=== PATIENT | male | born 1980 | race Caucasian/White ===

== ENCOUNTER 2019-12-28 09:35 | Inpatient (IN) | payer MEDICAID ==
[~2019-12-28] VITALS: Ht 205.7 cm; Wt 111.1 kg
--- NOTE | 2019-12-28 09:48 | NUR ---
DR KASPER AT THE BEDSIDE FOR MSE.
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
--- NOTE | 2019-12-28 10:16 | NUR ---
MEDICATED PT PER MD ORDER, SEE EMAR, PT VERBALIZED UNDERSTANDING OF MEDICATION TEACHING. WILL CONT TO MONITOR.
--- NOTE | 2019-12-28 10:40 | NUR ---
PT TAKEN TO XRAY VIA EST[facility]LE.
--- NOTE | 2019-12-28 11:24 | NUR ---
DR ABDUL AT BEDSIDE FOR WOUND CARE
--- NOTE | 2019-12-28 11:25 | NUR ---
PT REPORTED PAIN LEVELS "SAME" FOLLOWING MORPHINE, PAIN 10/10. DR KASPER AT BEDSIDE.
--- NOTE | 2019-12-28 12:52 | NUR ---
PT RPEORTED IMPROVED PAIN, STATED PAIN OS 0/10 "HWEN I DON'T MOVE." PT IN POSITION OF COMFORT LAYING IN ER [facility]. PT IS AAOX4, NO DISTRESS NOTED, RESP E/U. PT NOTED TALKING ON CELL PNONE. AWARE. WILL CONT TO MONITOR.
[2019-12-28] MEDS ORDERED: PROAIR RES117 MCG/Ac INH (12:56)
--- NOTE | 2019-12-28 12:56 | NUR ---
MED REC AND BELONGINGS LIST COMPLETED
--- NOTE | 2019-12-28 14:31 | NUR ---
REPORT GIVEN TO LUIS RICK ON [facility] WHO WILL BE ASSUMING FURTHER CARE OF THIS PT.
--- NOTE | 2019-12-28 14:32 | NUR ---
RESIDENTS AT THE BEDSIDE DISCUSSING PLAN OF A CARE TO PT.
--- NOTE | 2019-12-28 15:50 | NUR ---
RECEIVED PT FROM ED NURSE VIA CARL. PT IS A/OX4. ABLE TO MAKE NEEDS KNOWN. NOSE, EYES, AND LIPS ARE SWOLLEN. LUNG SOUNDS CTA. BREATHING E/U ON RA. DENIES SOB. MED SURG PT. DENIES CP/PRESSURE. PULSES EVEN AND PALPABLE. NO EDEMA NOTED. ACTIVE BS X4. ABD SOFT AND ROUND. DENIES N/V/D. VOIDS FREELY. URINAL BY BEDSIDE. BEDREST AT THIS TIME. 6 CM LACERATION WITH 19 JOCELYN NOTED TO R KNEE. SANDOR. LACERATION NOTED TO L KNEE. ABOUT 2 CM IN LENGTH. 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 WOUND PICTURES TAKEN AND FILED IN PT'S CHART. PT C/O 02/10 TO FACE, R HIP AND LEG. WILL MEDICATE PER EMAR. IV 18 NOTED TO LH. SL. FLUSHES WITH NO DIFFICULTY. BED AT LOWEST POSITION. CALL BUTTON WITHIN REACH. WILL CONTINUE TO MONITOR.
[2019-12-28 15:51] VITALS: BP 139/81
--- NOTE | 2019-12-28 16:16 | NUR ---
RECEIVED PATIENT FROM ER VIA GUER[facility]Z, TOOK 4 STAFFS TRANSFER TO BED. AA/O X4, C/O PAIN TO RT HIP 02/10 WITH MOVEMENT. NO ACUTE DISTRESS NOTED. REPOSITION UP IN BED. ORIENTED TO CALL LIGHT. MED-SURG. IV TO INTACTA AND PATENT NOTED. ENDORSE CARE TO LUIS TO MEDICATE FOR PAIN.
[2019-12-28 16:31] LABS: BASOPHIL % 0.4 % (0-2); PLATELET COUNT 216 x10^3mcL (130-400); RED CELL DISTRIBUTION WIDTH 13.8 % (11.5-14.5)
[2019-12-28 16:56] LABS: CALCIUM 8.6 mg/dL (8.5-10.1); CARBON DIOXIDE 18.2 mmol/L (21-32); CHLORIDE SERUM 101 mmol/L (98-107); CREATININE SERUM 1.1 mg/dL (0.7-1.3); GFR1 > 60 mL/min; GLUCOSE SERUM 84 mg/dL (74-106); POTASSIUM SERUM 4.1 mmol/L (3.5-5.1); SODIUM SERUM 137 mmol/L (136-145)
[2019-12-28 17:00] LABS: ALBUMIN 3.6 g/dL (3.4-5.0); ALKALINE PHOSPHATASE 27 U/L (46-116); ALT/SGPT 161 U/L (16-63); AST/SGOT 61 U/L (15-37); BILIRUBIN TOTAL 0.5 mg/dL (0.20-1.00)
[2019-12-28 18:07] LABS: MAGNESIUM 1.7 mg/dL (1.8-2.4); PHOSPHOROUS 3.3 mg/dL (2.5-4.9)
[2019-12-28 18:08] LABS: ALBUMIN 3.6 g/dL (3.4-5.0); ALKALINE PHOSPHATASE 29 U/L (46-116); ALT/SGPT 171 U/L (16-63); AST/SGOT 61 U/L (15-37); BILIRUBIN DIRECT 0.12 mg/dL (0.0-0.2); BILIRUBIN TOTAL 0.5 mg/dL (0.20-1.00)
[2019-12-28 18:11] LABS: CHOLESTEROL/HDL RATIO 12.8
--- NOTE | 2019-12-28 18:51 | NUR ---
NO ACUTE DISTRESS NOTED. RESP EVEN AND UNLABORED. WILL ENDORSE CARE TO PM NURSE FOR CONTINUITY OF CARE.
--- NOTE | 2019-12-28 19:25 | NUR ---
PT RECEIVED FROM AM NURSE. PT A/O X4, ABLE TO MAKE NEEDS KNOWN. MED-SURG, DENIES ANY CP/PRESSURE. PULSES PALPABLE, SWELLING NOTED TO ELMER EYELIDS AND LIPS. BREATHING IS EVEN AND UNLABORED ON RA, NO RESP DISTRESS NOTED. ABD SOFT AND ROUND, DENIES ANY N/V. VOIDS FREELY, URINAL AT BEDSIDE. GENERALIZED WEAKNESS, WEAKNESS TO RLE. LARGE LACERATION TO RLE W/ 19 JOCELYN INTACT, SANDOR. PT NOTED W/ MULTIPLE ABRASIONS AND ERYTHEMA TO BODY AND FACE. PT DENIES ANY PAIN AT THIS TIME. SL TO LH, SITE WNL. NO ACUTE DISTRESS NOTED. BED IN LOWEST SETTING. SIDE RAILS UP X2, CALL LIGHT WITHIN REACH, WILL CONT TO MONITOR.
[2019-12-28 21:00] VITALS: BP 136/79
--- NOTE | 2019-12-28 21:17 | NUR ---
PT C/O 01/11 RLE PAIN, PRN MORPHINE IVP GIVEN PER EMAR. NO ACUTE DISTRESS NOTED. WILL CONT TO MONITOR.
--- NOTE | 2019-12-28 23:15 | NUR ---
PT C/O 610 RLE PAIN, PRN NORCO GIVEN PER EMAR. NO ACUTE DISTRESS NOTED. WILL CONT TO MONITOR.
--- NOTE | 2019-12-29 00:43 | NUR ---
PT AWAKE AND ALERT. PT C/O /10 RLE AND BACK PAIN, PRN MORPHINE IVP GIVEN PER EMAR. PT REPOSITIONED PER REQUEST. IVF INFUSING WELL TO , SITE WNL. NO ACUTE DISTRESS NOTED. WILL CONT TO MONITOR.
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
[2019-12-29 04:57] VITALS: BP 137/84
--- NOTE | 2019-12-29 06:21 | NUR ---
PT SLEPT AT INTERVALS THROUGHOUT THE EVENING. BREATHING IS EVEN AND UNLABORED, NO RESP DISTRESS NOTED. PT REPORTS "MY GENITAL AREA FEELS LIKE ITS SWOLLEN AND RISING UP INTO MY ABD." PT NOTED WITH MINIMAL SCROTAL EDEMA AND FIRM AND DISTENDED ABD, BOWEL SOUNDS ACTIVE X4 QUAD. PT ALSO REPORTS RLE FEELS WARM; RLE PALPATED AND SKIN WAS COOL TO TOUCH, PT ABLE TO WIGGLE TOES, FEEL SENSATION, AND RT PEDAL PULSE STRONG. NO OTHER CHANGES ENCOUNTERED DURING SHIFT. ALL NEEDS MET AND ANTICIPATED. CALL LIGHT WITHIN REACH. WILL ENDORSE CARE TO AM NURSE.
[2019-12-29 07:05] LABS: BASOPHIL % 0.3 % (0-2); PLATELET COUNT 197 x10^3mcL (130-400); RED CELL DISTRIBUTION WIDTH 13.8 % (11.5-14.5)
[2019-12-29 07:26] LABS: CALCIUM 8.4 mg/dL (8.5-10.1); CARBON DIOXIDE 26.8 mmol/L (21-32); CHLORIDE SERUM 99 mmol/L (98-107); CREATININE SERUM 1.2 mg/dL (0.7-1.3); GFR1 > 60 mL/min; GLUCOSE SERUM 93 mg/dL (74-106); MAGNESIUM 1.9 mg/dL (1.8-2.4); PHOSPHOROUS 3.2 mg/dL (2.5-4.9); POTASSIUM SERUM 4.1 mmol/L (3.5-5.1); SODIUM SERUM 134 mmol/L (136-145)
[2019-12-29 07:45] VITALS: BP 142/92
--- NOTE | 2019-12-29 09:28 | NUR ---
RECEIVED PT FROM PM NURSE. PATIENT RESTING AT THIS TIME WITH NO ACUTE DISTRESS. PT IS A/OX4. ABLE TO MAKE NEEDS KNOWN. SWELLING NOTED TO BILATERAL EYELIDS AND LIPS. LUNG SOUNDS CTA. BREATHING E/U ON RA. DENIES SOB. MED SURG. DENIES CP/PRESSURE. PULSES EVEN AND PALPABLE. MILD SCROTAL EDEMA NOTED. ACTIVE BSX4. ABD FIRM AND DISTENDED. LBM 8/26. DENIES N/V/D. VOIDS FREELY. URINAL AT BEDSIDE. GENERALIZED WEAKNESS. LACERATION NOTED TO R LEG WITH 19 JOCELYN INTACT. 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 MULTIPLE ABRASIONS AND ERYTHEMA ALSO NOTED TO BODY AND FACE. PT C/O PAIN. WILL MEDICATE PER EMAR.IV TO LH CURRENTLY INFUSING NS AT 100ML/HR. BED AT LOWEST POSITION. CALL LIGHT WITHIN REACH. WILL CONTINUE TO MONITOR.
[2019-12-29 11:55] VITALS: BP 129/88
--- NOTE | 2019-12-29 12:59 | NUR ---
Discount pharmacy card and list to low cost medical clinics given to patient.
[2019-12-29 16:03] VITALS: BP 123/62
--- NOTE | 2019-12-29 18:35 | NUR ---
PAIN MEDICATIONS GIVEN THROUGHOUT SHIFT PER EMAR. NO ACUTE DISTRESS NOTED. WILL ENDORSE CARE TO PM SHIFT FOR CONTINUITY OF CARE.
--- NOTE | 2019-12-29 19:35 | NUR ---
PT RECEIVED FROM AM NURSE. PT A/O X4, ABLE TO MAKE NEEDS KNOWN. PT DENIES CP/PRESSURE. PULSES PALPABLE, ERYTHEMA AND SWELLING NOTED TO BILAT EYELIDS, LIPS AND NOSE. MINIMAL SCROTAL SWELLING NOTED, VOIDS FREELY USING URINAL. BOWEL SOUNDS ACTIVE X4 QUAD, ABD SOFT AND DISTENDED. GENERALIZED WEAKNESS OF RLE, TOE TOUCH WEIGHT BEARING TO RLE, FWW AT BEDSIDE. 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 PT DENIES PAIN AT THIS TIME. IVF INFUSING WELL TO L HAND, SITE WNL. NO ACUTE DISTRESS NOTED, CALL LIGHT W/IN REACH, WILL CONTINUE TO MONITOR.
[2019-12-29 20:21] VITALS: BP 124/68
--- NOTE | 2019-12-29 22:34 | NUR ---
PT C/O 11/10 PAIN, PRN NORCO GIVEN PER EMAR,NO ACUTE DISTRESS, WILL CONTINUE TO MONITOR.
--- NOTE | 2019-12-30 01:41 | NUR ---
PT IS ASLEEP AND RESTING. NO ACUTE DISTRESS NOTED. NO S/S OF PAIN. EVEN RISE AND FALL OF CHEST ON RESPIRATIONS. CALL LIGHT WITHIN REACH, WILL CONTINUE TO MONITOR.
[2019-12-30 05:13] VITALS: BP 126/75
--- NOTE | 2019-12-30 06:37 | NUR ---
PT SLEPT FOR INTERVALS DURING THE NIGHT. BREATHING EVEN AND UNLABORED. NO RESP DISTRESS NOTED. PT C/O 11/10 RLE PAIN. PRN NORCO GIVEN PER EMAR. JOCELYN INTACT TO RLE, NO ACUTE CHANGES ENCOUNTERED DURING SHIFT. ALL NEEDS MET AND ANTICIPATED. IV FLUIDS INFUSING WELL TO LH. CALL LIGHT WITHIN REACH. WILL ENDORSE CARE TO AM NURSE.
--- NOTE | 2019-12-30 07:45 | NUR ---
RECEIVED PT FROM NIGHT NURSE. PT RECENTLY MEDICATED AND DID NOT NEED INTERVENTIONS FOR PAIN. WILL MONITOR AND PROVIDE MEDS AT REGULAR INTERVALS. AAOX4 AND COMFORTABLE OTHERWISE. NO ACUTE DISTRESS AT THIS TIME. ALL IMMEDIATE NEEDS MET.
[2019-12-30 10:22] LABS: BASOPHIL % 0.8 % (0-2)
[2019-12-30 10:28] LABS: PLATELET COUNT 189 x10^3mcL (130-400); RED CELL DISTRIBUTION WIDTH 13.8 % (11.5-14.5)
[2019-12-30 11:44] LABS: CALCIUM 8.8 mg/dL (8.5-10.1); CHLORIDE SERUM 100 mmol/L (98-107); CREATININE SERUM 1.2 mg/dL (0.7-1.3); GFR1 > 60 mL/min; GLUCOSE SERUM 100 mg/dL (74-106); MAGNESIUM 2.1 mg/dL (1.8-2.4); PHOSPHOROUS 3.2 mg/dL (2.5-4.9); POTASSIUM SERUM 4.3 mmol/L (3.5-5.1); SODIUM SERUM 135 mmol/L (136-145)
[2019-12-30 13:34] VITALS: BP 115/57
--- NOTE | 2019-12-30 15:35 | NUR ---
PT C/O OF ITCHING IN BILAT HANDS AND REPORTED A FEELING LIKE THERE WAS POSSIBLE SMALL PIECES OF GLASS EMBEDDED IN HIS BACK. NO GLASS WAS VISIBLE ON INSPECTION. PT DID PRESENT WITH ERYTHEMA ALL ACROSS LOWER BACK AND MIDLINE. MD ALERTED AND STATED HE WOULD COME TO ASSESS PT. BENEDRYL WAS ORDERED FOR POSSIBLE ALLERGY AND GIVEN PO. PT REPORTS BEING COMFORTABLE AT THE MOMENT. WILL CONTINUE TO MONITOR.
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
[2019-12-30 21:15] VITALS: BP 148/65
--- NOTE | 2019-12-31 01:55 | NUR ---
PATIENT RESTING WITH EYES CLOSED INTERMITTENTLY. PATIENT DENIES PAIN AT THIS TIME, REMAINS ON RA, DENIES CHEST PAIN. PT WAS GIVEN MORPHINE PRN HE REPORTED CONSTANT PAIN IN RIGHT LOWER EXTREMITY. STITCHES REMAIN IN PLACE AT THIS TIME. NO ACUTE CH ANGES AT THIS TIME. BED IN LOWEST POSITION, CALL LIGHT WITHIN REACH. WILL CONTINUE TO MONITOR.
--- NOTE | 2019-12-31 05:18 | NUR ---
PATIENT RESTED INTERMITTENTLY WITH EYES CLOSED. PT REMAINS ON RA, DENIES SOB/CHEST PAIN AT THIS TIME. PATIENT REPORTS PAIN TO RIGHT BILATERAL LOWER EXTREMITY, PAIN ALLEVIATED INTERMITTENTLY WITH PAIN MEDICATION. ALL COMFORT CARE ACCOUNTED FOR AT THIS TIME. BED IN LOWEST POSITION, CALL LIGHT WITHIN REACH. WILL CONTINUE TO MONITOR UNTIL APPROPRIATE TO ENDORSE TO DAYSHIFT NURSE.
[2019-12-31 05:29] VITALS: BP 118/71
[2019-12-31 07:01] LABS: CALCIUM 8.5 mg/dL (8.5-10.1); CARBON DIOXIDE 26.5 mmol/L (21-32); CHLORIDE SERUM 101 mmol/L (98-107); CREATININE SERUM 1.3 mg/dL (0.7-1.3); GFR1 > 60 mL/min; GLUCOSE SERUM 87 mg/dL (74-106); MAGNESIUM 2.3 mg/dL (1.8-2.4); PHOSPHOROUS 4.2 mg/dL (2.5-4.9); SODIUM SERUM 137 mmol/L (136-145)
[2019-12-31 07:02] LABS: BASOPHIL % 0.6 % (0-2); PLATELET COUNT 181 x10^3mcL (130-400); RED CELL DISTRIBUTION WIDTH 14.2 % (11.5-14.5)
--- NOTE | 2019-12-31 07:20 | NUR ---
ENDORSED CARE TO DAYSHIFT NURSE. ALL QUESTIONS/CONCERNS ADDRESSED.
--- NOTE | 2019-12-31 07:30 | NUR ---
PATIENT IS A&OX4, FOLLOWS COMMANDS AND COOPERATES WELL. MEDSURG PATIENT, DENIES CHEST PAIN. PERIPEHRAL PULSES PALPABLE W/ NO SIGNS OF EDEMA. LUNG SOUNDS CTA BILATERALLY, ON RA, O2 SAT 97%, DENIES SOB. NORMOACTIVE BSX4, ABD SOFT AND ROUND, DENIES ABD PAIN. VOIDS WELL USING URINAL. AMBULATORY WITH R SIDED GENERALIZED WEAKNESS. LACERATIONS TO FRONT OF FACE OBSERVED. STITCHES AND JOCELYN OBSERVED ON RLE. IV SITE ISC DI. WILL CONTINUE TO MONITOR PATIENT.
[2019-12-31 09:43] VITALS: BP 131/72
--- NOTE | 2019-12-31 10:50 | NUR ---
PATIENT TOLERATED WALKING TO RESTROOM USING WALKER AND BACK TO BED. PATIENT REQUESTED PAIN MEDICATION, PAIN MEDICATION PROVIDED. WILL CONTINUE TO MONITOR PATIENT.
[2019-12-31 12:44] LABS: BILIRUBIN DIRECT 0.17 mg/dL (0.0-0.2); BILIRUBIN TOTAL 0.45 mg/dL (0.20-1.00); TOTAL PROTEIN, SERUM 6.8 g/dL (6.4-8.2)
[2019-12-31 12:47] LABS: ALBUMIN 3.1 g/dL (3.4-5.0)
[2019-12-31 13:34] VITALS: BP 125/72
--- NOTE | 2019-12-31 13:51 | NUR ---
PATIENT IS CURRENTLY EATING LUNCH AT THIS TIME. PATIENT DENIES ANY DISCOMFORT AT THIS TIME, BUT ASKED FOR MORPHINE PRN TO BE GIVEN WHENEVER AVAILABLE TO HELP MANAGE PAIN. OTHERWISE, PATIENT IS COMFORTABLE AT THIS TIME. WILL CONTINUE TO MONITOR PATIENT.
[2019-12-31 17:04] VITALS: BP 134/72
--- NOTE | 2019-12-31 18:25 | NUR ---
PAIN MEDICATION HAS BEEN ADMINISTERED FOR THE PATIENT. ALL QUESTIONS AND CONCERNS HAVE BEEN ADDRESSED. WILL CONTINUE TO MONITOR PATIENT.
--- NOTE | 2019-12-31 19:30 | NUR ---
RECEIVED PT FROM [facility] NURSE. PT IS AAOX4, MED SURG PATIENT, DENIES HEADACHE/NAUSEA/DIZZINESS AT THIS TIME. PT IS MED SURG PATIENT, DENIES CHEST PAIN. PULSES ARE EQUAL BILATERALLY, NO EDEMA NOTED. PT IS ON RA, DWENIES SOB, NO ACUTE DISTRESS NOTED, EVEN AND UNLABORED BREATHING. ABDOMEN IS ROUND AND DISTENDED, NORMOACTIVE X4 QUADRANTS, LAST BM 12/28. PT VOIDS FREELY. PT HAS GENERALIZED WEAKNESS. PT HAS LACERATIONS TO FRONT OF FACE, SANDOR. PT HAS JOCELYN TO RIGHT LOWER EXTREMITY, SANDOR. PATIENT COMPLAINTS OF CONSTANT PAIN TO RIGHT LOWER EXTREMITY. PT HAS IV TO LEFT HAND, NO REDNESS OR SWELLING NOTED. PT IS CALM AND COOPERATIVE AT THIS TIME. BED IN LOWEST POSITION, CALL LIGHT WITHIN REACH. WILL CONTINUE TO MONITOR.
[2019-12-31 20:28] VITALS: BP 130/68
--- NOTE | 2020-01-01 01:26 | NUR ---
PT RESTED INTERMITTENTLY WITH EYES CLOSED. PT HAS BEEN RECEIVING PAIN MEDICATION PRN. PATIENT REPORTS CONSTANT PAIN IN RIGHT LOWER EXTREMITY, STATES MEDICATION ALLEVIATES THE PAIN, NORCO AND MORPHINE PRN HAVE BEEN GIVEN. NO OTHER ACUTE DISTRESS NOTED. BED IN LOWEST POSITION, CALL LIGHT WITHIN REACH. WILL CONTINUE TO MONITOR.
[2020-01-01 05:28] VITALS: BP 111/63
--- NOTE | 2020-01-01 06:52 | NUR ---
PATIENT RESTED INTERMITTENTLY THROUGHOUT THE NIGHT WITH EYES CLOSED. PATIENT COMPLAINTS OF INTERMITENT RIGHT LOWER LEG PAIN, GIVEN MORPHINE AND NORCO PRN. PATIENT DENIES SOB/CHEST PAIN. ALL COMFORT CARE ACCOUNTED FOR AT THIS TIME. BED IN LOWEST POSITION, CALL LIGHT WITHIN REACH. WILL CONTINUE TO MONITOR UNTIL APPROPRIATE TO ENDORSE TO DAYSHIFT NURSE.
[2020-01-01 07:01] LABS: BASOPHIL % 0.4 % (0-2); PLATELET COUNT 187 x10^3mcL (130-400); RED CELL DISTRIBUTION WIDTH 13.6 % (11.5-14.5)
[2020-01-01 07:13] LABS: ALKALINE PHOSPHATASE 27 U/L (46-116); ALT/SGPT 117 U/L (16-63); AST/SGOT 42 U/L (15-37); BILIRUBIN TOTAL 0.7 mg/dL (0.20-1.00); CALCIUM 8.7 mg/dL (8.5-10.1); CARBON DIOXIDE 27.9 mmol/L (21-32); CHLORIDE SERUM 99 mmol/L (98-107); CREATININE SERUM 1.1 mg/dL (0.7-1.3); GFR1 > 60 mL/min; GLUCOSE SERUM 95 mg/dL (74-106); MAGNESIUM 1.9 mg/dL (1.8-2.4); PHOSPHOROUS 3.8 mg/dL (2.5-4.9); POTASSIUM SERUM 3.9 mmol/L (3.5-5.1); SODIUM SERUM 136 mmol/L (136-145)
[2020-01-01 07:16] LABS: ALBUMIN 3.2 g/dL (3.4-5.0)
--- NOTE | 2020-01-01 07:37 | NUR ---
ENDORSED CARE TO DAYSHIFT NURSE. ALL QUESTIONS/CONCERNS ADDRESSED.
[2020-01-01 09:26] VITALS: BP 137/78
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
[2020-01-01 13:25] VITALS: BP 130/70
[2020-01-01] MEDS ORDERED: NORCO 10-325 T1 EACH PO (13:58)
--- NOTE | 2020-01-01 15:35 | NUR ---
UPDATE: TALKED TO DR LAIRD AND UPDATED HIM ON PAIN MANAGEMENT GOAL. PATIENT HAS ONLY TAKEN MORPHINE X1 AND NORCO X1 BUT WANTED MORE PAIN MANAGEMENT THIS AFTERNOON. NORCO FREQUENCY WAS ADJUSTED AND FREQUENCY CHANGED TO Q4H. NORCO WAS GIVEN AT 1444. PATIENT GOT GABRIEL KHOURY, PAGED MD TO CLARIFY IF IT IS OK. REGULAR DIET PATIENT.
--- NOTE | 2020-01-01 16:46 | NUR ---
UPDATE ON D/C DR NOE CALLED AND WANTED TO DC PATIENT TODAY IF HE FELT COMFORTABLE. I ASKED AND HE SAID HE WOULD PREFER TO STAY OVERNIGHT AND DC IN THE AM, HE WILL ARRANGE TRANSPORTION WITH FAMILY TO PICK HIM UP. CONTINUE NORCO FOR NOW WITHOUT MORPHINE IN PREPERATION FOR DISCHARGE.
[2020-01-01 17:58] VITALS: BP 123/66
--- NOTE | 2020-01-01 19:35 | NUR ---
RECEIVED PT FROM DAYHISFT NURSE. PT IS AAOX4, DENIES HEADACHE/NAUSEA/DIZZINESS. PT IS MED SURG PATIENT, DENIES CHEST PAIN AT THIS TIME. PT IS CTA, ON RA, DENIES SOB. NO ACUTE DISTRESS NOTED, EVEN AND UNLABORED BREATHING. ABDOMEN IS SOFT AND ROUND, NO PAIN UPON PALPATION. NORMOACTIVE X4 QUADRANTS, LAST BM 12/31. PT VOIDS FREELY, URINAL AT BEDSIDE. PT HAS GENERALIZED WEAKNESS AND WEAKNESS TO RIGHT LOWER EXTREMITY. 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 PT HAS RIGHT LOWER EXTREMITY JOCELYN, HYDRAULIC OIL TOOL OPERATOR. PT COMPLAINTS OF INTERMITTENT PAIN TO RIGHT LOWER EXTREMITY. IV IS TO LEFT HAND, SITE IS INTACT, NO REDNESS OR SWELLING NOTED. ALL COMFORT CARE ACCOUNTED FOR AT THIS TIME. BED IN LOWEST POSITION, CALL LIGHT WITHIN REACH. WILL CONTINUE TO MONITOR.
[2020-01-01 21:09] VITALS: BP 136/56
--- NOTE | 2020-01-01 22:30 | NUR ---
PATIENT COMMUNICATED DISCOMFORT ON RIGHT KNEE. PATIENT STATES HE FEELS UNALIGNMENT AFTER AMBULATING TO THE RESTROOM. COMMUNICATED WITH DR. SALAMANCA, ORDERED XRAY TO BE DONE. COMMUNICATED AT BEDSIDE WITH PATIENT AND DOCTOR REGARDING XRAY WELL PAIN MANAGEMENT. ALL COMFORT CARE ACCOUNTED FOR AT THIS TIME. BED IN LOWEST POSITION, CALL LIGHT WITHIN REACH. WILL CONTINUE TO MONITOR.
--- NOTE | 2020-01-01 23:10 | NUR ---
XRAY RESULTS COMMUNICATED WITH DOCTOR AND PATIENT. ALL QUESTIONS/CONCERNS ADDRESSED.
--- NOTE | 2020-01-02 01:11 | NUR ---
PATIENT RESTING IN BED WITH EYES CLOSED. PATIENT COMPLAINED OF INTERMITTENT PAIN TO RIGHT LOWER EXTREMITY, ADMINISTERED NORCO PRN. ALL COMFORT CARE ACCOUNTED FOR AT THIS TIME. BED IN LOWEST POSITION, CALL LIGHT WITHIN REACH. WILL CONTINUE TO MONITOR.
[2020-01-02 05:11] VITALS: BP 104/40
--- NOTE | 2020-01-02 05:38 | NUR ---
PATIENT RESTED INTERMITTENTLY WITH EYES CLOSED. PATIENT REMAINS ON RA, DENIES SOB. PATIENT COMPLAINTS OF INTERMITTENT RIGHT LOWER EXTREMITY PAIN, NORCO PRN HAS BEEN GIVEN. PATIENT COMMUNICATED PAIN IN RIGHT KNEE, XR WAS DONE, AND RESULTS WERE COMMUNICATED WITH DOCTOR AND PATIENT. PATIENT REMAINS WITH LEFT HAND IV. SITE IS INTACT, NO REDNESS OR SWELLING NOTED. ALL COMFORT CARE ACCOUNTED FOR AT THIS TIME. BED IN LOWEST POSITION, CALL LIGHT WITHIN REACH. WILL CONTINUE TO MONITOR UNTIL APPROPRIATE TO ENDORSE TO DAYSHIFT NURSE.
--- NOTE | 2020-01-02 07:20 | NUR ---
ENDORSED CARE TO DAYSHIFT NURSE. ALL QUESTIONS/CONCERNS ADDRESSED.
--- NOTE | 2020-01-02 07:30 | NUR ---
RECEIVED REPORT FROM NIGHTSHIFT RN. PATIENT A&OX4, ROOM AIR, VITALS STABLE, RESTING IN BED. NO C/O PAIN AT THIS MOMENT, UPDATED PATIENT ON POC. WILL CONTINUE TO MONITOR.
[2020-01-02] MEDS ORDERED: XARELTO10 M1 PO (07:34)
[2020-01-02 08:46] VITALS: BP 114/60
[2020-01-02 13:24] VITALS: BP 114/60
[2020-01-02] MEDS ORDERED: ANTIFUNGAL14 G1 TOP (14:15)
[2020-01-02 14:48] VITALS: BP 114/60
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
== END 2020-01-02 16:12 | disposition home or self-care (01) | DRG 930 ==
LOC: ED 09:35 → MU 13:53
PROVIDERS: Emergency Medicine; ADMIT Internal Medicine; ATTEND Internal Medicine
PROC: 0HQKXZZ Repair Right Lower Leg Skin, External Approach (ICD-10-PCS; principal; 2019-12-28)
DX: S32.491A Other specified fracture of right acetabulum, initial encounter for closed fracture (principal); S36.112A Contusion of liver, initial encounter; E44.0 Moderate protein-calorie malnutrition; E83.41 Hypermagnesemia; S81.811A Laceration without foreign body, right lower leg, initial encounter; S05.11XA Contusion of eyeball and orbital tissues, right eye, initial encounter; S60.211A Contusion of right wrist, initial encounter; S30.1XXA Contusion of abdominal wall, initial encounter; E83.42 Hypomagnesemia; E83.51 Hypocalcemia; E87.1 Hypo-osmolality and hyponatremia; N43.3 Hydrocele, unspecified; R74.0 Nonspecific elevation of levels of transaminase and lactic acid dehydrogenase [LDH]; J45.909 Unspecified asthma, uncomplicated; F17.210 Nicotine dependence, cigarettes, uncomplicated; Z20.828 Contact with and (suspected) exposure to other viral communicable diseases; N43.2 Other hydrocele; E78.5 Hyperlipidemia, unspecified; V89.2XXA Person injured in unspecified motor-vehicle accident, traffic, initial encounter; Y93.89 Activity, other specified; Y92.89 Other specified places as the place of occurrence of the external cause; Z86.19 Personal history of other infectious and parasitic diseases; Y99.8 Other external cause status; Z68.26 Body mass index [BMI] 26.0-26.9, adult
CPT/HCPCS: 90715; 97116-GP; 97530-GP; G0378; J2001; J2270; J2405; J7030; Q0092; Q0163; U0003-CS

== ENCOUNTER 2020-01-14 18:02 | Emergency (ER) | payer OTHER, MEDICAID ==
[~2020-01-14] VITALS: Ht 182.9 cm; Wt 108.9 kg
[~2020-01-14 18:02] MED LIST: ANTIFUNGAL14 G1 TOP; NORCO 10-325 T1 EACH PO; PROAIR RES117 MCG/Ac INH; XARELTO10 M1 PO
[2020-01-14 18:08] VITALS: BP 135/90; Ht 182.9 cm; Wt 108.9 kg
== END 2020-01-14 19:03 | disposition home or self-care (01) ==
LOC: ED 18:02
DX: S81.811D Laceration without foreign body, right lower leg, subsequent encounter (principal); V49.09XD Driver injured in collision with other motor vehicles in nontraffic accident, subsequent encounter